=== PATIENT | male | born 1990 | race Caucasian/White ===

== ENCOUNTER 2017-04-25 04:32 | Emergency (ER) | payer OTHER ==
[~2017-04-25] VITALS: Ht 157.5 cm; Wt 73.1 kg
[2017-04-25 04:35] VITALS: TEMP 36.5; Ht 157.5 cm; Wt 73.1 kg
--- NOTE | 2017-04-25 04:51 | EMERGENCY ROOM VISIT NOTE ---
History Report prepared by Femi: Navi Aaron Under the Supervision of: Dr. Mono Snow M.D. First contact with patient: 04:43 Chief Complaint: FOREIGNBODY ANY BODY PART Stated Complaint: SWALLOWED SOMETHING History of Present Illness The patient is a 27 year old male who presents to the Emergency Room from [facility] with complaints of a persistent foreign body after swallowing multiple objects over the past few days. He states that he has been swallowing speaker components, a magnet, and batteries over the past few days, including today. The patient states that he has been having severe headaches in addition to chest pain. He adds that he has had a bit of abdominal pain. He notes that he felt short of breath earlier, and passed out. The patient denies any hematochezia. Source of History: patient, other (detention staff) Onset: Over past few days Position: other (global - foreign body) Quality: other (swallowing multiple objects) Timing: other (persistent) Associated Symptoms: + LOC, + headache, + chest pain, + SOB, + abdominal pain, No hematochezia Note: No other associated symptoms noted. Review of Systems See HPI for pertinent positives & negatives. A total of 10 systems reviewed and were otherwise negative. Past Medical & Surgical Medical Problems: (1) No chronic problems Family History Unobtainable Social History Smoking Status: Former Smoker Housing Status: other (prisoner) Occupation Status: other (prisoner) Current/Historical Medications Scheduled Nortriptyline (Pamelor), 25 MG PO HS Venlafaxine Hcl (Effexor), 150 MG PO BID Scheduled PRN Albuterol Hfa (Ventolin Hfa), 2 PUFFS INH QID PRN for Shortness of Breath Uzpwwde-Floswzupftzin-Lshcwncs (Excedrin Extra Strength), 1 TAB PO BID PRN for Headache Allergies Coded Allergies: No Known Allergies (Unverified , 04/25/17) Physical Exam Vital Signs Date Time Temp Pulse Resp B/P (MAP) Pulse Ox O2 Delivery O2 Flow Rate FiO2 04/25/17 07:04 116 18 131/78 97 Room Air 04/25/17 04:35 36.5 120 20 128/75 96 Room Air Physical Exam GENERAL: Patient is well appearing and in no acute distress. Patient is a prisoner. Wearing spit mask as he had been spitting on staff. HEENT: No acute trauma, normocephalic atraumatic, mucous membranes moist, no nasal congestion, no scleral icterus. NECK: No stridor, no adenopathy, no meningismus, trachea is midline. LUNGS: No dyspnea. Clear to auscultation and equal bilaterally. No wheeze, no rhonchi. HEART: Regular rate and rhythm. No murmurs, rubs, gallops appreciated. ABDOMEN: Soft, vague left lower quadrant tenderness, bowel sounds positive, no masses appreciated, no peritonitis. BACK: No midline tenderness, no CVA tenderness EXTREMITIES: Normal motion all extremities, no cyanosis, no edema. NEUROLOGIC: Alert and oriented, no acute motor or sensory deficits, no focal weakness, cranial nerves grossly intact. SKIN: Multiple abrasions over much of body, admits self-inflicted. No deep lacerations. Medical Decision & Procedures ER Provider Diagnostic Interpretation: Radiology results and stated below per my review and radiologist interpretation: KUB x-ray 1 view: multiple metallic foreign bodies noted throughout epigastrium , colon and rectum, consistent with washers and small screws/bolts. No clear evidence of free air. However there is hypodensity along the right liver edge. Chest: 1 view: No infiltrate, no effusion, normal cardiac border. ED Course 0444: The patient was evaluated in room B4B. A complete history and physical exam was performed. 0520: I reevaluated the patient and made him aware of his x-ray findings. He notes that he did not eat any batteries, just magnets. 0715: Reevaluated the patient and he is resting. Discussed results and discharge instructions: he verbalized understanding and agreement. The patient is ready for discharge. Medical Decision 27 yr old male arrives from detention after consuming multiple metal objects he dissected from speaker over last 3 days. Claims various things he consumed from screws, batteries, magnets, etc. KUB without evidence of metallic clumping and all objects seem separate from each other. With reported magnet ingestion felt reasonable to do CT which revealed no evidence of perforation. No indication for further treatment at this time. Will likely pass. Can be monitored at detention for further issues which were reviewed with patient. Medication Reconcilliation Current Medication List: was personally reviewed by me Blood Pressure Screening Patient's blood pressure: Normal blood pressure Impression Primary Impression: Foreign body ingestion Scribe Attestation The scribe's documentation has been prepared under my direction and personally reviewed by me in its entirety. I confirm that the note above accurately reflects all work, treatment, procedures, and medical decision making performed by me. Departure Information Dispostion Home / Self-Care Referrals Eb ALBRECHT (PCP) Patient Instructions My [facility] Additional Instructions Stop eating non-food items. This may kill you. Multiple foreign bodies were noted throughout your abdomen. At this time there is no evidence of perforation (popping) of bowel. These pieces will likely come out through stool over next few days. Return if severe abdominal pain, fevers, vomiting, blood in stool or other concerns.
[2017-04-25] MEDS ORDERED: NORT25CA PO (05:26)
[2017-04-25] MEDS ORDERED: EFF75 PO (05:27)
[2017-04-25] MEDS ORDERED: VNTHFA/IN INH (05:27)
[2017-04-25] MEDS ORDERED: ASPI-391 PO (05:28)
--- NOTE | 2017-04-25 06:33 | DIAGNOSTIC IMAGING REPORT ---
CHEST ONE VIEW PORTABLE CLINICAL HISTORY: claims to have swallowed metal, batteries and magnets foreign body COMPARISON STUDY: No previous studies for comparison. FINDINGS: The bones soft tissues and hemidiaphragms are normal. The cardiomediastinal silhouette is normal. The lungs are clear. The pulmonary vasculature is normal. Multiple punctate small calcified granulomas bilaterally. IMPRESSION: No acute process. No radiopaque foreign body. The above report was generated using voice recognition software. It may contain grammatical, syntax or spelling errors. Electronically signed by: Marcelo Ruiz M.D. 04/25/2017 6:31 AM Dictated Date/Time: 04/25/2017 6:31 AM
--- NOTE | 2017-04-25 06:44 | DIAGNOSTIC IMAGING REPORT ---
KUB HISTORY: Swallowed foreign body claims to have swallowed metal, batteries and magnets COMPARISON: CT of same day. FINDINGS: Cusp granulomas of the lung bases. The bowel gas pattern is non-obstructive. There are 2 metallic foreign bodies of the upper abdomen within the region of the stomach or duodenum measuring up to 11 mm. Additionally, there are 6 metallic density foreign bodies throughout the abdomen which appear to be present within the colon, largest which measures up to 10 mm. These foreign bodies appear to represent washers and screws with 11 mm foreign body of the upper abdomen indeterminate. Moderate stool volume of the colon. There is no organomegaly. No renal calculi. No ureteral calculi. No pneumoperitoneum or pneumatosis. No fracture. IMPRESSION: 1. 7 total metallic density foreign bodies throughout the abdomen as above, most of which appear to be present within the distribution of the colon. No bowel obstruction, pneumatosis or pneumoperitoneum identified. 2. Moderate stool volume throughout the colon suggest constipation. Electronically signed by: Chad Spivey M.D. 04/25/2017 6:43 AM Dictated Date/Time: 04/25/2017 6:39 AM
[2017-04-25 07:04] VITALS: BP 131/78; PULSE 116; O2SAT 97
[2017-04-25] MEDS ORDERED: ACETAMINOPHEN 500 MG TAB PO STA (07:05)
--- NOTE | 2017-04-25 07:06 | DIAGNOSTIC IMAGING REPORT ---
ABD/PELVIS WITHOUT FOR STONE HISTORY: 27 years-old Male reports diffuse abdominal pain s/p ingestion multiple metal FB acute generalized abdominal pain with foreign body ingestion COMPARISON: KUB of same day TECHNIQUE: Multiple axial CT images of the abdomen and pelvis were obtained without contrast. A dose lowering technique was used consistent with the principals of DANIEL. FINDINGS: Multiple calcified granulomas of the lung bases. No pneumatosis or pneumoperitoneum. The imaged inferior cardiac chambers are unremarkable. The liver, spleen, gallbladder, pancreas and adrenal glands are within normal limits. Kidneys, ureters and urinary bladder are within normal limits. Aorta is normal in course and caliber. No bulky adenopathy. There is no bowel obstruction. There are 8 total ingested metallic density foreign bodies noted, largest of which measures up to 10 mm. There appears to be 5 round structures which may reflect washers, 2 screws and one indeterminate foreign body within the duodenum measuring 6 mm, nicely seen on image 71 series 2. Indeterminate foreign body is adjacent to a screw within the third portion of the duodenum. No additional small bowel foreign bodies identified. Screw is noted within the rectum with the remaining foreign bodies scattered throughout the colon. Moderate stool volume suggests constipation. No focal bowel wall thickening or evidence of perforation. Normal appendix. Soft tissues are unremarkable. The bones appear intact. IMPRESSION: 1. 8 total ingested metallic density foreign bodies are noted as above within the colon and duodenum. No bowel obstruction, pneumatosis or pneumoperitoneum. 2. Suggested constipation. 3. Prior granulomatous disease. 4. Normal appendix. The above report was generated using voice recognition software. It may contain grammatical, syntax or spelling errors. Electronically signed by: Chad Spivey M.D. 04/25/2017 7:04 AM Dictated Date/Time: 04/25/2017 6:54 AM
== END 2017-04-25 07:28 ==
LOC: C.EDB 04:35
DX: T18.9XXA Foreign body of alimentary tract, part unspecified, initial encounter (principal); T14.8XXA Other injury of unspecified body region, initial encounter; X83.8XXA Intentional self-harm by other specified means, initial encounter; Z87.891 Personal history of nicotine dependence